=== PATIENT | male | born 1980 | race African-American/Black ===

== ENCOUNTER 2018-09-04 12:18 | Inpatient (IN) | payer BC ==
[~2018-09-04] VITALS: Ht 177.8 cm; Wt 65.2 kg
[2018-09-04 13:22] LABS: BASOPHILS # (AUTO) 0.1 X10'3 (0-0.2); BASOPHILS % (AUTO) 1.4 % (0-1); EOSINOPHILS # (AUTO) 0.1 X10'3 (0-0.9); EOSINOPHILS % (AUTO) 1.8 % (0-6); HEMATOCRIT 41.8 % (42.0-52.0); HEMOGLOBIN 13.2 g/dl (14.0-17.9); LYMPHOCYTES # (AUTO) 2.2 X10'3 (1.1-4.8); LYMPHOCYTES % (AUTO) 41.3 % (21-51); MEAN CORPUSCULAR HEMOGLOBIN 23.5 PG (27.0-31.0); MEAN CORPUSCULAR HGB CONC 31.7 g/dL (33.0-36.5); MEAN CORPUSCULAR VOLUME 74.3 FL (78-98); MEAN PLATELET VOLUME 8.6 FL (7.4-10.4); MONOCYTES # (AUTO) 0.6 X10'3 (0-0.9); MONOCYTES % (AUTO) 11.9 % (2-12); NEUTROPHILS # (AUTO) 2.4 X10'3 (1.8-7.7); NEUTROPHILS % (AUTO) 43.6 % (42-75); PLATELET COUNT 232 X10'3 (140-440); RED BLOOD COUNT 5.62 X10'6 (4.70-6.10); RED CELL DISTRIBUTION WIDTH 15.1 % (11.5-14.5); WHITE BLOOD COUNT 5.4 X10'3 (4.5-11.0)
[2018-09-04] MEDS ORDERED: NO HOME MEDS (13:22)
[2018-09-04 13:40] LABS: PARTIAL THROMBOPLASTIN TIME 35 SECONDS (22-32)
[2018-09-04] MEDS ORDERED: magnesium 4gm in 100ml NS 100 ML IV PRN (13:50)
[2018-09-04] MEDS ORDERED: HYDROcodone/acetaminophen 5mg/325mg tablet PO PRN (13:50)
[2018-09-04] MEDS ORDERED: potassium Cl 40MEQ/NS 500ml 500 ML IV PRN (13:50)
[2018-09-04] MEDS ORDERED: magnesium 2GM in 50ml NS 50 ML IV PRN (13:50)
[2018-09-04] MEDS ORDERED: mag hydrox/Alum hydrox/simeth 30ml oral suspension PO PRN (13:50)
[2018-09-04] MEDS ORDERED: potassium Cl 20 mEq SR tablet PO PRN ×2 (13:50)
[2018-09-04] MEDS ORDERED: magnesium hydroxide 30ml (MOM) UD suspension PO PRN (13:50)
[2018-09-04] MEDS ORDERED: ondansetron/PF 4mg/2ml inj IV PRN (13:50)
[2018-09-04] MEDS ORDERED: morphine 2 MG/ML inj. syringe IV PRN (13:50)
[2018-09-04] MEDS ORDERED: magnesium Cl slow-release 64mg tablet PO PRN (13:50)
[2018-09-04] MEDS ORDERED: potassium CL 10mEq/100ml bag 100 ML IV PRN (13:50)
[2018-09-04] MEDS ORDERED: acetaminophen 325mg tablet PO PRN ×2 (13:50)
[2018-09-04 13:54] LABS: ALANINE AMINOTRANSFERASE 30 U/L (12-78); ALBUMIN 3.9 G/DL (3.4-5.0); ALBUMIN/GLOBULIN RATIO 1.1 (1.1-1.5); ALKALINE PHOSPHATASE 76 IU/L (46-116); ANION GAP 5 (8-16); ASPARTATE AMINO TRANSFERASE 19 U/L (10-37); BILIRUBIN,TOTAL 0.8 MG/DL (0.1-1.0); BLOOD UREA NITROGEN 16 MG/DL (7-18); BUN/CREATININE RATIO 15.2 (5.4-32.0); CALCIUM 8.9 MG/DL (8.5-10.1); CHLORIDE 105 MMOL/L (99-107); CREATININE 1.05 MG/DL (0.60-1.10); GLUCOSE 91 MG/DL (70-104); POTASSIUM 4.4 MMOL/L (3.5-5.1); SODIUM 140 MMOL/L (135-145); TOTAL CARBON DIOXIDE 29.9 MMOL/L (24-32); TOTAL PROTEIN 7.4 G/DL (6.4-8.2); eGFR > 90 ML/MIN
[2018-09-04 14:10] VITALS: BP 108/68
--- NOTE | 2018-09-04 14:10 | NUR ---
pt arrived to floor via hospital bed with all belongings. pt transferred to bed with a steady gait; VSS. pt oriented to room and call light. 2 RN skin check was performed with Azalia PIERRE.
[2018-09-04 15:00] VITALS: BP 112/67
[2018-09-04] MEDS ORDERED: ipratropium/albuterol 3ml nebule NEB PRN (17:10)
--- NOTE | 2018-09-04 17:59 | NUR ---
Problems reprioritized. Patient report given, questions answered & plan of care reviewed with Isidra PIERRE.
[2018-09-04 18:00] VITALS: BP 100/55
--- NOTE | 2018-09-04 18:27 | NUR ---
Patient in room MED 315. I have received report from IGNACIO Cassidy and had the opportunity to ask questions and assume patient care.
[2018-09-04 22:00] VITALS: BP 104/48
[2018-09-05 00:59] LABS: BASOPHILS % (AUTO) 0.5 % (0-1); EOSINOPHILS # (AUTO) 0.1 X10'3 (0-0.9); EOSINOPHILS % (AUTO) 2.2 % (0-6); HEMATOCRIT 39.3 % (42.0-52.0); HEMOGLOBIN 12.6 g/dl (14.0-17.9); LYMPHOCYTES # (AUTO) 2.6 X10'3 (1.1-4.8); LYMPHOCYTES % (AUTO) 46.3 % (21-51); MEAN CORPUSCULAR HEMOGLOBIN 23.7 PG (27.0-31.0); MEAN PLATELET VOLUME 8.7 FL (7.4-10.4); MONOCYTES # (AUTO) 0.7 X10'3 (0-0.9); MONOCYTES % (AUTO) 11.8 % (2-12); NEUTROPHILS # (AUTO) 2.2 X10'3 (1.8-7.7); NEUTROPHILS % (AUTO) 39.2 % (42-75); PLATELET COUNT 230 X10'3 (140-440); RED BLOOD COUNT 5.31 X10'6 (4.70-6.10); RED CELL DISTRIBUTION WIDTH 15.1 % (11.5-14.5); WHITE BLOOD COUNT 5.6 X10'3 (4.5-11.0)
[2018-09-05 02:00] VITALS: BP 111/58
[2018-09-05] MEDS: HYDROcodone/acetaminophen 10/325mg tab PO PRN ×3 (03:00→22:16)
--- NOTE | 2018-09-05 04:17 | NUR ---
PAGER ID: [phone] MESSAGE: Dr. Emanuel, patient [place], . room 315 on : Bradycardia down to 41. IGNACIO Miner ACCE [phone]
[2018-09-05 04:41] LABS: ALBUMIN 3.5 G/DL (3.4-5.0); ANION GAP 8 (8-16); BLOOD UREA NITROGEN 22 MG/DL (7-18); BUN/CREATININE RATIO 20.2 (5.4-32.0); CALCIUM 9.2 MG/DL (8.5-10.1); CHLORIDE 106 MMOL/L (99-107); CREATININE 1.09 MG/DL (0.60-1.10); GLUCOSE 95 MG/DL (70-104); MAGNESIUM 2.1 MG/DL (1.5-2.4); SODIUM 141 MMOL/L (135-145); TOTAL CARBON DIOXIDE 26.7 MMOL/L (24-32); eGFR > 90 ML/MIN
[2018-09-05 06:00] VITALS: BP 95/52
--- NOTE | 2018-09-05 06:13 | NUR ---
Problems reprioritized. Patient report given, questions answered & plan of care reviewed with IGNACIO Cassidy.
[2018-09-05] MEDS: K and/or MAG REPLACEMENT MC SCH (08:00)
[2018-09-05] MEDS ORDERED: MESSAGE TO NURSING PO ONE (10:00)
[2018-09-05 10:33] LABS: HEMOGLOBIN A1C 5.6 % (4.5-6.2)
[2018-09-05] MEDS ORDERED: ringers solution, lacted 1,000 ML IV ONE (10:48)
[2018-09-05 11:00] VITALS: BP 103/67
--- NOTE | 2018-09-05 12:28 | NUR ---
PAGED RT "AB ORDERED FOR 315, GOING FOR SURGERY TOMORROW. THANK YOU, LAZARO JACK [phone]"
[2018-09-05 14:15] LABS: ABG BASE EXCESS -1.6 mmol/L (-2.0-3.0); ABG OXYGEN SATURATION 97.6 % (95-98); ABG PCO2 (T) 38.7 mmHg (35.0-48.0); ABG PH (T) 7.392 (7.350-7.450); ABG PO2 (T) 97.7 mmHg (83-108); ALLEN'S TEST Positive; FCOHb 0.6 % (0.5-1.5); FMetHb 0.3 % (0.3-1.12); FO2Hb 96.7 % (94-100); TOTAL HEMOGLOBIN 13.3 G/dl (14.0-18.0)
[2018-09-05 15:00] VITALS: BP 101/61
[2018-09-05 17:18] LABS: CLARITY,URINE CLEAR (Clear); COLOR,URINE YELLOW (Yellow); GLUCOSE, URINE NEGATIVE (Neg); KETONES,URINE NEGATIVE (Neg); LEUKOCYTE ESTERASE ,URINE NEGATIVE (Neg); NITRITES, URINE NEGATIVE (Neg); OCCULT BLOOD,URINE NEGATIVE (Neg); PROTEIN,URINE NEGATIVE (Neg); UROBILINOGEN,URINE 0.2 E.U/dL (0.2-1.0)
[2018-09-05 17:19] LABS: UA COLLECTION TYPE NON-SPECIFIED
[2018-09-05 18:00] VITALS: BP 97/58
--- NOTE | 2018-09-05 18:00 | NUR ---
Patient in room MED 315. I have received report from IGNACIO Cassidy and had the opportunity to ask questions and assume patient care.
[2018-09-05 22:00] VITALS: BP 110/62
[2018-09-06] VITALS (23 sets, daily range): BP systolic 97–192; BP diastolic 44–84
[2018-09-06] MEDS: HYDROcodone/acetaminophen 10/325mg tab PO PRN ×2 (02:38→18:38)
[2018-09-06 05:24] LABS: BASOPHILS % (AUTO) 0.7 % (0-1); EOSINOPHILS # (AUTO) 0.1 X10'3 (0-0.9); EOSINOPHILS % (AUTO) 2.3 % (0-6); HEMATOCRIT 37.3 % (42.0-52.0); HEMOGLOBIN 12.2 g/dl (14.0-17.9); LYMPHOCYTES # (AUTO) 2.4 X10'3 (1.1-4.8); LYMPHOCYTES % (AUTO) 45.3 % (21-51); MEAN CORPUSCULAR HGB CONC 32.7 g/dL (33.0-36.5); MEAN CORPUSCULAR VOLUME 73.4 FL (78-98); MEAN PLATELET VOLUME 8.6 FL (7.4-10.4); MONOCYTES # (AUTO) 0.6 X10'3 (0-0.9); MONOCYTES % (AUTO) 10.5 % (2-12); NEUTROPHILS # (AUTO) 2.2 X10'3 (1.8-7.7); NEUTROPHILS % (AUTO) 41.2 % (42-75); PLATELET COUNT 211 X10'3 (140-440); RED BLOOD COUNT 5.08 X10'6 (4.70-6.10); RED CELL DISTRIBUTION WIDTH 15.1 % (11.5-14.5); WHITE BLOOD COUNT 5.3 X10'3 (4.5-11.0)
[2018-09-06] MEDS ORDERED: gabapentin 400mg capsule PO ONE (05:30)
[2018-09-06] MEDS ORDERED: NUT.TX.IMPAIRED DIGEST FXN (Ensure Clear) 237 ML PO ONE (05:30)
[2018-09-06] MEDS ORDERED: cefazolin/dext.iso 2gm/100ml 100 ML IV ONE (05:30)
[2018-09-06] MEDS ORDERED: MESSAGE TO NURSING PO ONE ×2 (05:30)
[2018-09-06] MEDS: mupirocin 2% ointment 22GM NS SCH ×2 (05:37→21:01)
[2018-09-06 05:51] LABS: ALBUMIN 3.4 G/DL (3.4-5.0); ANION GAP 8 (8-16); BLOOD UREA NITROGEN 15 MG/DL (7-18); BUN/CREATININE RATIO 13.4 (5.4-32.0); CALCIUM 8.2 MG/DL (8.5-10.1); CHLORIDE 105 MMOL/L (99-107); CREATININE 1.12 MG/DL (0.60-1.10); GLUCOSE 103 MG/DL (70-104); MAGNESIUM 1.7 MG/DL (1.5-2.4); SODIUM 140 MMOL/L (135-145); TOTAL CARBON DIOXIDE 27.4 MMOL/L (24-32); eGFR 88 ML/MIN
[2018-09-06] MEDS ORDERED: famotidine 20mg tablet PO ONE (06:00)
--- NOTE | 2018-09-06 06:31 | NUR ---
Problems reprioritized. Patient report given, questions answered & plan of care reviewed with IGNACIO Garduno.
[2018-09-06] MEDS ORDERED: BUPIVAcaine/PF 2.5 mg/ml (0.25%) 30ml vial ONE ×2 (06:47→08:05)
[2018-09-06] MEDS ORDERED: sterile Talc 2 GM powder vial ONE ×2 (06:47→07:30)
--- NOTE | 2018-09-06 06:50 | NUR ---
Patient in room MED 315. I have received report from Isidra PIERRE and had the opportunity to ask questions and assume patient care.
--- NOTE | 2018-09-06 06:55 | NUR ---
Patient taken to OR; stable during transfer
[2018-09-06] MEDS ORDERED: fentaNYL /PF 50mcg/ml 5ml ampule ONE (07:05)
[2018-09-06] MEDS ORDERED: LIDOcaine 2% (20mg/ml) 5ml vial ONE (07:05)
[2018-09-06] MEDS ORDERED: propofol inj 20 ML IV ONE (07:05)
[2018-09-06] MEDS ORDERED: midazolam 2 mg/2 ml injection ONE ×3 (07:05→07:52)
[2018-09-06] MEDS ORDERED: dexamethasone sod phosphate 4mg/ml inj. ONE (07:06)
[2018-09-06] MEDS ORDERED: neostigmine methylsulfate 1 MG/ML 10ml vial ONE (07:06)
[2018-09-06] MEDS ORDERED: rocuronium 10mg/ml inj IV ONE ×2 (07:06→08:38)
[2018-09-06] MEDS ORDERED: glycopyrrolate 0.2mg/ml inj ONE (07:06)
[2018-09-06] MEDS ORDERED: sevoflurane 250ml liquid IH ONE (07:09)
[2018-09-06] MEDS ORDERED: ceFAZolin 1000mg inj ONE ×2 (07:45)
[2018-09-06] MEDS ORDERED: ondansetron/PF 4mg/2ml inj ONE (07:50)
[2018-09-06] MEDS: K and/or MAG REPLACEMENT MC SCH (08:00)
[2018-09-06] MEDS ORDERED: ringers solution, lacted 1,000 ML IV SCH (08:16)
[2018-09-06] MEDS ORDERED: ondansetron/PF 4mg/2ml inj IV PRN (08:20)
[2018-09-06] MEDS ORDERED: morphine 4 MG/ML inj SYRINge IV PRN ×2 (08:20)
[2018-09-06] MEDS ORDERED: hydrALAZINE 20mg/ml inj. IV PRN (08:20)
[2018-09-06] MEDS ORDERED: meperidine/PF 25mg/ml syringe IV PRN ×2 (08:20)
[2018-09-06] MEDS ORDERED: enalaprilat dihydrate 2.5mg/2ml vial IV PRN (08:20)
[2018-09-06] MEDS ORDERED: metoclopramide 5 mg/ml inj IV PRN (09:10)
[2018-09-06] MEDS ORDERED: naloxone 0.4 mg/ml inj IV PRN (09:10)
[2018-09-06] MEDS ORDERED: albuterol 2.5 MG/3 ML nebule NEB PRN (09:10)
[2018-09-06] MEDS ORDERED: labetalol 20mg/4ml (5mg/ml) syringe IV ONE (09:14)
--- NOTE | 2018-09-06 09:35 | NUR ---
Received from OR via bed, accompanied by Anesthesiologist. Report received. Initial physical assessment done and recorded. Chest tube to low suction no air leaks observed. Dr. Ledesma at bedside, PCXR done and reviewed by Dr. Ledesma. Medicated for pain by anesthesia.
--- NOTE | 2018-09-06 10:45 | NUR ---
Discharge criteria met, report to receiving floor. Transferred to room in stable condition. Arterial line dc'd prior to discharge from PACU.
--- NOTE | 2018-09-06 10:48 | NUR ---
Received report from Lakeshia PIERRE in recovery room; had opportunity to ask questions, all questions answered.
--- NOTE | 2018-09-06 10:55 | NUR ---
Patient returned from Recovery Room. Chest tube placed on left side, drained 50 cc in recovery room. Morrell catheter in place. Vital signs 132/82, HR 56, O2 98, RR 16. Dressing on chest tube site is dry and intact. Will continue to monitor closely
[2018-09-06 12:01] LABS: HEMOGLOBIN 12.3 g/dl (14.0-17.9); MONOCYTES # (AUTO) 0.2 X10'3 (0-0.9); NEUTROPHILS # (AUTO) 11.5 X10'3 (1.8-7.7)
[2018-09-06] MEDS: morphine 2 MG/ML inj. syringe IV PRN ×2 (12:05→16:17)
[2018-09-06 12:06] LABS: BASOPHILS % (AUTO) 0.3 % (0-1); EOSINOPHILS % (AUTO) 0.1 % (0-6); HEMATOCRIT 39.2 % (42.0-52.0); LYMPHOCYTES # (AUTO) 0.8 X10'3 (1.1-4.8); LYMPHOCYTES % (AUTO) 6.5 % (21-51); MEAN CORPUSCULAR HEMOGLOBIN 23.4 PG (27.0-31.0); MEAN CORPUSCULAR HGB CONC 31.3 g/dL (33.0-36.5); MEAN CORPUSCULAR VOLUME 74.7 FL (78-98); MEAN PLATELET VOLUME 8.3 FL (7.4-10.4); MONOCYTES % (AUTO) 1.9 % (2-12); NEUTROPHILS % (AUTO) 91.2 % (42-75); PLATELET COUNT 220 X10'3 (140-440); RED BLOOD COUNT 5.25 X10'6 (4.70-6.10); RED CELL DISTRIBUTION WIDTH 15.4 % (11.5-14.5); WHITE BLOOD COUNT 12.6 X10'3 (4.5-11.0)
[2018-09-06 12:10] LABS: ALBUMIN 3.3 G/DL (3.4-5.0); ANION GAP 7 (8-16); BLOOD UREA NITROGEN 13 MG/DL (7-18); CALCIUM 8.5 MG/DL (8.5-10.1); CHLORIDE 105 MMOL/L (99-107); GLUCOSE 106 MG/DL (70-104); POTASSIUM 3.9 MMOL/L (3.5-5.1); SODIUM 140 MMOL/L (135-145); TOTAL CARBON DIOXIDE 28.2 MMOL/L (24-32); eGFR > 90 ML/MIN
[2018-09-06] MEDS: ketorolac tromethamine 15mg/ml inj. IV SCH ×2 (14:38→21:00)
[2018-09-06] MEDS: albuterol 2.5 MG/3 ML nebule NEB SCH ×3 (15:01→22:56)
[2018-09-06] MEDS: ceFAZolin 1GM/D5W- ADD-VANTAGE 50 ML IV SCH (15:45)
--- NOTE | 2018-09-06 18:05 | NUR ---
Problems reprioritized. Patient report given, questions answered & plan of care reviewed with Isidra PIERRE.
--- NOTE | 2018-09-06 18:16 | NUR ---
Patient in room MED 315. I have received report from IGNACIO Garduno and had the opportunity to ask questions and assume patient care.
[2018-09-06] MEDS: docusate sod 100mg capsule PO SCH (20:58)
[2018-09-07] MEDS: ceFAZolin 1GM/D5W- ADD-VANTAGE 50 ML IV SCH (00:17)
[2018-09-07] MEDS: HYDROcodone/acetaminophen 10/325mg tab PO PRN ×4 (00:25→19:38)
[2018-09-07 02:00] VITALS: BP 107/57
[2018-09-07] MEDS: ketorolac tromethamine 15mg/ml inj. IV SCH ×2 (02:07→07:54)
[2018-09-07] MEDS: albuterol 2.5 MG/3 ML nebule NEB SCH ×6 (02:44→23:02)
[2018-09-07 06:00] VITALS: BP 111/60
--- NOTE | 2018-09-07 06:24 | NUR ---
Problems reprioritized. Patient report given, questions answered & plan of care reviewed with IGNACIO Zhong.
[2018-09-07 06:31] LABS: BASOPHILS % (AUTO) 0.2 % (0-1); EOSINOPHILS % (AUTO) 0 % (0-6); HEMATOCRIT 36.4 % (42.0-52.0); HEMOGLOBIN 11.6 g/dl (14.0-17.9); LYMPHOCYTES # (AUTO) 1.7 X10'3 (1.1-4.8); LYMPHOCYTES % (AUTO) 13.9 % (21-51); MEAN CORPUSCULAR HEMOGLOBIN 23.6 PG (27.0-31.0); MEAN CORPUSCULAR HGB CONC 31.8 g/dL (33.0-36.5); MEAN CORPUSCULAR VOLUME 74.1 FL (78-98); MEAN PLATELET VOLUME 9.3 FL (7.4-10.4); MONOCYTES # (AUTO) 1.1 X10'3 (0-0.9); MONOCYTES % (AUTO) 9.4 % (2-12); NEUTROPHILS # (AUTO) 9.2 X10'3 (1.8-7.7); NEUTROPHILS % (AUTO) 76.5 % (42-75); PLATELET COUNT 212 X10'3 (140-440); RED BLOOD COUNT 4.91 X10'6 (4.70-6.10); RED CELL DISTRIBUTION WIDTH 14.7 % (11.5-14.5)
--- NOTE | 2018-09-07 06:32 | NUR ---
Patient in room MED 315. I have received report from Isidra PIERRE and had the opportunity to ask questions and assume patient care.
--- NOTE | 2018-09-07 06:34 | NUR ---
Patient in room MED 315. I have received report from Isidra and had the opportunity to ask questions and assume patient care.
[2018-09-07 06:39] LABS: ALBUMIN 3.2 G/DL (3.4-5.0); ANION GAP 7 (8-16); BLOOD UREA NITROGEN 12 MG/DL (7-18); BUN/CREATININE RATIO 11.7 (5.4-32.0); CALCIUM 8.8 MG/DL (8.5-10.1); CHLORIDE 106 MMOL/L (99-107); CREATININE 1.03 MG/DL (0.60-1.10); GLUCOSE 108 MG/DL (70-104); MAGNESIUM 1.6 MG/DL (1.5-2.4); POTASSIUM 3.7 MMOL/L (3.5-5.1); SODIUM 140 MMOL/L (135-145); TOTAL CARBON DIOXIDE 27.1 MMOL/L (24-32); eGFR > 90 ML/MIN
[2018-09-07] MEDS: docusate sod 100mg capsule PO SCH ×2 (07:54→19:38)
[2018-09-07] MEDS: K and/or MAG REPLACEMENT MC SCH (08:00)
[2018-09-07] MEDS: gabapentin 300mg capsule PO SCH ×3 (08:40→21:05)
--- NOTE | 2018-09-07 08:50 | NUR ---
Called chest xray results to Dr Ledesma and reported Dr Randall's (radiologist) concerns that chest tube may not be working adequatlely. Dr Ledesma stated that he reviewed the chest xray image himself and that all looks well. He is not concerned.
--- NOTE | 2018-09-07 09:00 | NUR ---
RN informed patient that she was going to remove jha catheter. Patient stated that he would rather have his do it (she is an RN). Jha catheter removed by patient's (RN) without complications.
--- NOTE | 2018-09-07 09:09 | NUR ---
I have reviewed and agree with all medications administered and interventions performed by [facility] Student Adrian Benedict Addendum: 09/07/18 at 0909 by Kathleen Melissa RT Amended: Links added.
[2018-09-07 11:00] VITALS: BP 110/63
--- NOTE | 2018-09-07 14:47 | NUR ---
Chest tube atrium had appeared to have been knocked over at some point, as there was sanguinous fluid in multiple chambers (cumulative amount unchanged). Swapped out atrium for a new one to get a fresh start with output measurements.
[2018-09-07 17:29] VITALS: BP 115/59
[2018-09-07 18:00] VITALS: BP 92/54
--- NOTE | 2018-09-07 18:30 | NUR ---
Patient in room MED 315. I have received report from IGNACIO Sánchez (orientee) and IGNACIO Zhong and had the opportunity to ask questions and assume patient care.
--- NOTE | 2018-09-07 18:30 | NUR ---
Problems reprioritized. Patient report given, questions answered & plan of care reviewed with Isidra PIERRE.
[2018-09-07 22:00] VITALS: BP 104/62
[2018-09-08 02:00] VITALS: BP 112/69
[2018-09-08] MEDS: HYDROcodone/acetaminophen 10/325mg tab PO PRN ×4 (02:12→19:41)
[2018-09-08] MEDS: albuterol 2.5 MG/3 ML nebule NEB SCH ×6 (03:26→23:15)
[2018-09-08 05:53] LABS: BASOPHILS # (AUTO) 0.1 X10'3 (0-0.2); BASOPHILS % (AUTO) 0.8 % (0-1); EOSINOPHILS # (AUTO) 0.1 X10'3 (0-0.9); HEMATOCRIT 33.8 % (42.0-52.0); LYMPHOCYTES # (AUTO) 2.4 X10'3 (1.1-4.8); LYMPHOCYTES % (AUTO) 27.5 % (21-51); MEAN CORPUSCULAR HEMOGLOBIN 23.8 PG (27.0-31.0); MEAN CORPUSCULAR HGB CONC 32.5 g/dL (33.0-36.5); MEAN CORPUSCULAR VOLUME 73.3 FL (78-98); MEAN PLATELET VOLUME 8.6 FL (7.4-10.4); MONOCYTES # (AUTO) 1.1 X10'3 (0-0.9); MONOCYTES % (AUTO) 12.2 % (2-12); NEUTROPHILS # (AUTO) 5.1 X10'3 (1.8-7.7); NEUTROPHILS % (AUTO) 58.5 % (42-75); PLATELET COUNT 204 X10'3 (140-440); RED BLOOD COUNT 4.61 X10'6 (4.70-6.10); RED CELL DISTRIBUTION WIDTH 14.6 % (11.5-14.5); WHITE BLOOD COUNT 8.8 X10'3 (4.5-11.0)
[2018-09-08 06:00] VITALS: BP 108/62
[2018-09-08 06:16] LABS: ALBUMIN 3.1 G/DL (3.4-5.0); ANION GAP 8 (8-16); BLOOD UREA NITROGEN 9 MG/DL (7-18); BUN/CREATININE RATIO 9.5 (5.4-32.0); CALCIUM 10.3 MG/DL (8.5-10.1); CHLORIDE 106 MMOL/L (99-107); CREATININE 0.95 MG/DL (0.60-1.10); GLUCOSE 97 MG/DL (70-104); MAGNESIUM 1.7 MG/DL (1.5-2.4); POTASSIUM 3.7 MMOL/L (3.5-5.1); SODIUM 143 MMOL/L (135-145); TOTAL CARBON DIOXIDE 28.7 MMOL/L (24-32); eGFR > 90 ML/MIN
--- NOTE | 2018-09-08 06:35 | NUR ---
Problems reprioritized. Patient report given, questions answered & plan of care reviewed with IGNACIO Sullivan and IGNACIO Morrisseyee.
[2018-09-08] MEDS: K and/or MAG REPLACEMENT MC SCH (08:00)
[2018-09-08] MEDS: docusate sod 100mg capsule PO SCH ×2 (08:38→19:42)
[2018-09-08] MEDS: gabapentin 300mg capsule PO SCH ×3 (08:38→21:22)
[2018-09-08 15:00] VITALS: BP 108/67
[2018-09-08 18:00] VITALS: BP 128/77
--- NOTE | 2018-09-08 18:30 | NUR ---
Patient in room MED 315. I have received report from Yuni PIERRE and had the opportunity to ask questions and assume patient care.
[2018-09-08 22:00] VITALS: BP 128/77
[2018-09-09 02:00] VITALS: BP 108/64
[2018-09-09] MEDS: albuterol 2.5 MG/3 ML nebule NEB SCH ×2 (03:26→07:59)
[2018-09-09 06:00] VITALS: BP 111/63
--- NOTE | 2018-09-09 06:12 | NUR ---
Problems reprioritized. Patient report given, questions answered & plan of care reviewed with Ben RN's. Addendum: 09/09/18 at 0615 by Dimple Amado RN stef giles
--- NOTE | 2018-09-09 06:15 | NUR ---
Problems reprioritized. Patient report given, questions answered & plan of care reviewed with Art RN.
[2018-09-09 06:17] LABS: ALBUMIN 3.2 G/DL (3.4-5.0); ANION GAP 9 (8-16); BLOOD UREA NITROGEN 7 MG/DL (7-18); BUN/CREATININE RATIO 8.1 (5.4-32.0); CALCIUM 9.1 MG/DL (8.5-10.1); CHLORIDE 104 MMOL/L (99-107); CREATININE 0.86 MG/DL (0.60-1.10); GLUCOSE 94 MG/DL (70-104); MAGNESIUM 1.8 MG/DL (1.5-2.4); POTASSIUM 4.1 MMOL/L (3.5-5.1); SODIUM 139 MMOL/L (135-145); TOTAL CARBON DIOXIDE 26.1 MMOL/L (24-32); eGFR > 90 ML/MIN
[2018-09-09 07:02] LABS: BASOPHILS # (AUTO) 0.1 X10'3 (0-0.2); BASOPHILS % (AUTO) 0.7 % (0-1); EOSINOPHILS # (AUTO) 0.2 X10'3 (0-0.9); EOSINOPHILS % (AUTO) 2.3 % (0-6); HEMOGLOBIN 12.4 g/dl (14.0-17.9); LYMPHOCYTES # (AUTO) 1.7 X10'3 (1.1-4.8); LYMPHOCYTES % (AUTO) 20.6 % (21-51); MEAN CORPUSCULAR HEMOGLOBIN 23.8 PG (27.0-31.0); MEAN CORPUSCULAR HGB CONC 32.5 g/dL (33.0-36.5); MEAN CORPUSCULAR VOLUME 73.3 FL (78-98); MEAN PLATELET VOLUME 8.7 FL (7.4-10.4); MONOCYTES # (AUTO) 1.1 X10'3 (0-0.9); MONOCYTES % (AUTO) 13.2 % (2-12); NEUTROPHILS # (AUTO) 5.4 X10'3 (1.8-7.7); NEUTROPHILS % (AUTO) 63.2 % (42-75); PLATELET COUNT 228 X10'3 (140-440); RED BLOOD COUNT 5.19 X10'6 (4.70-6.10); RED CELL DISTRIBUTION WIDTH 15.3 % (11.5-14.5); WHITE BLOOD COUNT 8.5 X10'3 (4.5-11.0)
[2018-09-09] MEDS: docusate sod 100mg capsule PO SCH (07:36)
[2018-09-09] MEDS: gabapentin 300mg capsule PO SCH (07:36)
[2018-09-09] MEDS: HYDROcodone/acetaminophen 10/325mg tab PO PRN (07:38)
[2018-09-09] MEDS: K and/or MAG REPLACEMENT MC SCH (07:39)
--- NOTE | 2018-09-09 07:39 | NUR ---
No computer available to scan meds. Pt was experiencing chest discomfort and needed pain medication. Pt medications were given without scan. Charge nurse Azalia aware of malfunctioning equipment and approved of med administration.
[2018-09-09] MEDS ORDERED: HYDR-3972 PO (07:49)
[2018-09-09] MEDS ORDERED: COL100C PO (07:49)
--- NOTE | 2018-09-09 09:43 | NUR ---
DISCHARGE INSTRUCTIONS GIVEN TO PATIENT. ALL QUESTIONS AND CONCERNS ADDRESSED AT THIS TIME. PATIENT TO FOLLOW-UP W/ DR. TYLER OFFICE FOR "WORK OFF REQUEST FORM". AWAITING FOR [facility]ED[facility] RX DELIVERY. ALL PIVS REMOVED TIP INTACT.
== END 2018-09-09 10:15 | disposition home or self-care (01) | DRG 164 ==
LOC: ER 12:21 → MED 3N 13:54 → CMPBEDREQ 09-06 19:47
PROVIDERS: ADMIT Hospitalist; ATTEND Thoracic Surgery (Cardiothoracic Vascular Surgery)
PROC: 0BBP4ZZ Excision of Left Pleura, Percutaneous Endoscopic Approach (ICD-10-PCS; 2018-09-06)
PROC: 0BJ08ZZ Inspection of Tracheobronchial Tree, Via Natural or Artificial Opening Endoscopic (ICD-10-PCS; 2018-09-06)
PROC: 0BQG4ZZ Repair Left Upper Lung Lobe, Percutaneous Endoscopic Approach (ICD-10-PCS; principal; 2018-09-06 07:09)
DX: J43.0 Unilateral pulmonary emphysema [MacLeod's syndrome] (principal); J93.83 Other pneumothorax; J60 Coalworker's pneumoconiosis; M54.9 Dorsalgia, unspecified; Z87.891 Personal history of nicotine dependence
CPT/HCPCS: 99285; Z7506; Z7508; 36415; 36600; 71045; 71250; 80048; 80053; 81003; 82803; 82948; 83036; 83735; 84484; 85018; 85025; 85610; 85730; 86885; 86900; 86901; 87081; 93005; 94010; 94640; 94668; 94760; 97110; 97116; 97161; 97164; 97530; A6255; A6257; A6449; A7000; A7048; C1758; G0378; J0360; J0690; J1100; J1885; J2001; J2175; J2250; J2270; J2405; J2704; J2710; J3010; J3490; J7060; J7120

== ENCOUNTER 2018-09-17 13:08 | Outpatient (CLI) | payer BC, OTHER ==
[~2018-09-17 13:08] MED LIST: COL100C PO; HYDR-3972 PO; NO HOME MEDS
== END 2018-09-17 23:59 | disposition home or self-care (01) ==
LOC: RAD 13:08
PROVIDERS: ATTEND Thoracic Surgery (Cardiothoracic Vascular Surgery)
DX: J93.12 Secondary spontaneous pneumothorax (principal); Z87.891 Personal history of nicotine dependence
CPT/HCPCS: 71046

== ENCOUNTER 2019-05-18 05:42 | Observation (INO) | payer BC ==
[2019-05-05 12:16] LABS: BASOPHILS % (AUTO) 0.6 % (0-1); EOSINOPHILS # (AUTO) 0.1 X10'3 (0-0.9); EOSINOPHILS % (AUTO) 1.6 % (0-6); LYMPHOCYTES # (AUTO) 2.5 X10'3 (1.1-4.8); LYMPHOCYTES % (AUTO) 43.1 % (21-51); MEAN CORPUSCULAR HEMOGLOBIN 23.6 PG (27.0-31.0); MEAN CORPUSCULAR HGB CONC 31.9 g/dL (33.0-36.5); MEAN CORPUSCULAR VOLUME 74.1 FL (78-98); MEAN PLATELET VOLUME 8.8 FL (7.4-10.4); MONOCYTES # (AUTO) 0.5 X10'3 (0-0.9); MONOCYTES % (AUTO) 8.2 % (2-12); NEUTROPHILS # (AUTO) 2.6 X10'3 (1.8-7.7); NEUTROPHILS % (AUTO) 46.5 % (42-75); PRE OP HEMATOCRIT 43.7 % (42.0-52.0); PRE OP HEMOGLOBIN 13.9 g/dL (14.0-17.9); PRE OP PLATELET COUNT 259 X10'3 (140-440); RED CELL DISTRIBUTION WIDTH 16.1 % (11.5-14.5)
[2019-05-05 12:28] LABS: PRE OP INR 1.1 INR; PRE OP PROTIME 10.9 SECONDS (9.0-12.0)
[2019-05-05 12:35] LABS: ALBUMIN 4.1 G/DL (3.4-5.0); ALBUMIN/GLOBULIN RATIO 1.1 (1.1-1.5); ALKALINE PHOSPHATASE 81 IU/L (46-116); BLOOD UREA NITROGEN 7 MG/DL (7-18); BUN/CREATININE RATIO 7.1 (5.4-32.0); CALCIUM 9.3 MG/DL (8.5-10.1); CHLORIDE 106 MMOL/L (99-107); CREATININE 0.99 MG/DL (0.60-1.10); PRE OP ALT 17 U/L (30-65); PRE OP ANION GAP 3 (8-16); PRE OP AST 17 U/L (10-37); PRE OP BILIRUB, TOTAL 0.6 MG/DL (0.0-1.0); PRE OP GLUCOSE 82 MG/DL (70-104); PRE OP POTASSIUM 4.3 MMOL/L (3.4-5.1); PRE OP SODIUM 141 MMOL/L (135-145); TOTAL CARBON DIOXIDE 31.6 MMOL/L (24-32); TOTAL PROTEIN 7.7 G/DL (6.4-8.2); eGFR > 90 ML/MIN
[2019-05-18] VITALS (16 sets, daily range): BP systolic 88–120; BP diastolic 46–85
[~2019-05-18] VITALS: Ht 180.3 cm; Wt 65.0 kg
[~2019-05-18 05:42] MED LIST changes: -COL100C PO; -HYDR-3972 PO; +VANCOMYCIN INJ 1000 MG in NORMAL SALINE 250ml IV.SOLN IV ONE; +cefazolin/dext.iso 2gm/100ml 100 ML IV ONE; +famotidine 20mg tablet PO ONE; +ringers solution, lacted 1,000 ML IV SCH; +tranexamic acid inj. 1,000 MG in normal saline 100 ML IV ONE
[2019-05-18] MEDS ORDERED: LIDOcaine 1% (10mg/ml) 2ml vial ONE (05:59)
[2019-05-18] MEDS ORDERED: mupirocin 2% nasal ointment 1gm UD NS ONE (06:20)
[2019-05-18] MEDS ORDERED: ceFAZolin 1000mg inj ONE (06:45)
[2019-05-18] MEDS ORDERED: vancomycin 1,000mg inj ONE (06:45)
--- NOTE | 2019-05-18 06:45 | NUR ---
pt states did not pickup driver mupricion ointment pre op.
--- NOTE | 2019-05-18 06:50 | NUR ---
INCENTIVE SPIROMETER TEACHING DONE.
[2019-05-18] MEDS ORDERED: morphine /PF 1mg/ml 10ml inj. ONE (07:24)
[2019-05-18] MEDS ORDERED: MIDAZolam 1mg/ml 10ml vial ONE (07:24)
[2019-05-18] MEDS ORDERED: fentaNYL/PF 50MCG/1 ML 2ML syringe ONE (07:24)
[2019-05-18] MEDS ORDERED: diphenhydrAMINE 50 mg/ml inj ONE (07:32)
[2019-05-18] MEDS ORDERED: propofol inj 20 ML IV ONE (07:55)
[2019-05-18] MEDS ORDERED: ringers solution, lacted 1,000 ML IV SCH (09:19)
[2019-05-18] MEDS ORDERED: NORMAL SALINE IV PRN (09:19)
[2019-05-18] MEDS ORDERED: NALOXONE IV PRN (09:19)
[2019-05-18] MEDS ORDERED: meperidine/PF 25mg/ml syringe IV PRN ×3 (09:20)
[2019-05-18] MEDS ORDERED: proCHLORperazine 10 MG/2 ml inj IV PRN (09:20)
[2019-05-18] MEDS ORDERED: ondansetron/PF 4mg/2ml inj IV PRN ×3 (09:20→10:20)
[2019-05-18] MEDS ORDERED: morphine 2 MG/ML inj. syringe IV PRN (09:20)
[2019-05-18] MEDS ORDERED: diphenhydrAMINE 50 mg/ml inj IV PRN (09:20)
[2019-05-18] MEDS ORDERED: morphine 4 MG/ML inj SYRINge IV PRN (09:20)
[2019-05-18] MEDS ORDERED: cloNIDine hcl/PF 100mcg/ml inj ONE (09:50)
[2019-05-18] MEDS ORDERED: ROPIVAcaine 0.5% (5mg/ml) 30ml vial ONE (10:02)
[2019-05-18] MEDS ORDERED: BUPIVAcaine/PF 7.5mg/ml (0.75%) 10ml vial ONE (10:11)
[2019-05-18] MEDS ORDERED: HYDROmorphone inj. 0.5 MG/0.5 ML DISP.SYRIN IV PRN (10:20)
[2019-05-18] MEDS ORDERED: diphenhydrAMINE 25mg capsule PO PRN ×2 (10:20)
[2019-05-18] MEDS ORDERED: magnesium hydroxide 30ml (MOM) UD suspension PO PRN (10:20)
[2019-05-18] MEDS ORDERED: acetaminophen 325mg tablet PO PRN (10:20)
[2019-05-18] MEDS ORDERED: HYDROmorphone 1 mg/ml syringe IV PRN (10:20)
[2019-05-18] MEDS ORDERED: bisacodyl 10mg suppository rectal RC PRN (10:20)
--- NOTE | 2019-05-18 10:41 | NUR ---
Received from OR via ORTHO BED WITH [facility] , accompanied by Anesthesiologist HAI and report given by Anesthesiolgist. PATIENT WITH 18G PIV IN RIGHT UE RUNNING LR AT 1OOL, DENIES PAIN 2' SPINAL ANESTHESIA. L2 SENSATION TO RIGHT SIDE. LEFT WITH FULL SENSATION. JOSEPH CATHETER IN PLACE. RIGHT HIP WRAP WITH POWDER PACK IN PLACE. PATIENT VSS. SCDS DONNED. ABDUCTION WEDGE IN PLACE WELL. + CAP REFILL AND PWD TO RIGHT FOOT. KENDALL DRAIN PRESENT WELL. Addendum: 05/18/19 at 1100 by Bairon Dang RN, RN Amended: Links added.
--- NOTE | 2019-05-18 11:26 | NUR ---
Patient in room PAS IN 900. I have received report from Bairon and had the opportunity to ask questions and assume patient care.
--- NOTE | 2019-05-18 11:28 | NUR ---
Pt arrived on the floor, tucked in, provided comfort measures
--- NOTE | 2019-05-18 11:31 | NUR ---
ALL CRITERIA FOR TRANSFER TO THE FLOOR HAS BEEN ACHIEVED. VSS. BED LOW, CALL LIGHT AND VS. SET IN PLACE. RN PRESENT TO ACCEPT CARE. PATIENT RESTING COMFORTABLY IN BED. BELONGINGS SENT WITH PATIENT. DRESSINGS CDI. IGNACIO WYATT PRESENT TO ACCEPT CARE OF PATIENT. Addendum: 05/18/19 at 1202 by Bairon Abreu - IGNACIO PIERRE Amended: Links added.
[2019-05-18] MEDS: gabapentin 300mg capsule PO SCH ×2 (13:26→20:03)
[2019-05-18] MEDS ORDERED: tranexamic acid inj. 650 MG in normal saline 100ml IV soln 100 ML IV ONE (14:00)
[2019-05-18] MEDS: acetaminophen 325mg tablet PO SCH ×2 (14:30→20:03)
[2019-05-18] MEDS: potassium cl 20mEq in 1/2 NS 1,000 ML IV SCH ×2 (15:25→18:18)
[2019-05-18] MEDS ORDERED: ceFAZolin 1GM/D5W- ADD-VANTAGE 50 ML IV SCH (16:00)
[2019-05-18] MEDS: ceFAZolin/D5W- 1GM premix 50 ML IV SCH (16:56)
--- NOTE | 2019-05-18 18:12 | NUR ---
Problems reprioritized. Patient report given, questions answered & plan of care reviewed with
--- NOTE | 2019-05-18 18:24 | NUR ---
Patient in room ORTHO 4006. I have received report from IGNACIO WYATT and had the opportunity to ask questions and assume patient care.
[2019-05-18] MEDS ORDERED: vancomycin/NS 1 GM ADD-VANTAGE 250 ML IV SCH (20:00)
[2019-05-18] MEDS: sennosides 8.6mg tablet PO SCH (20:04)
[2019-05-19] VITALS (7 sets, daily range): BP systolic 92–124; BP diastolic 39–66
[2019-05-19] MEDS: oxyCODONE IR 5mg (immed. release) tablet PO PRN ×7 (01:11→21:24)
[2019-05-19] MEDS: acetaminophen 325mg tablet PO SCH ×4 (01:15→21:24)
[2019-05-19] MEDS: potassium cl 20mEq in 1/2 NS 1,000 ML IV SCH ×3 (01:23→18:18)
[2019-05-19] MEDS: ceFAZolin/D5W- 1GM premix 50 ML IV SCH (01:23)
[2019-05-19 05:19] LABS: BASOPHILS % (AUTO) 0.3 % (0-1); EOSINOPHILS % (AUTO) 0.1 % (0-6); HEMATOCRIT 30.9 % (42.0-52.0); HEMOGLOBIN 10.3 g/dl (14.0-17.9); LYMPHOCYTES # (AUTO) 1.9 X10'3 (1.1-4.8); LYMPHOCYTES % (AUTO) 19.3 % (21-51); MEAN CORPUSCULAR HEMOGLOBIN 24.5 PG (27.0-31.0); MEAN CORPUSCULAR HGB CONC 33.3 g/dL (33.0-36.5); MEAN CORPUSCULAR VOLUME 73.8 FL (78-98); MEAN PLATELET VOLUME 9.5 FL (7.4-10.4); MONOCYTES # (AUTO) 1.1 X10'3 (0-0.9); MONOCYTES % (AUTO) 11.4 % (2-12); NEUTROPHILS # (AUTO) 6.9 X10'3 (1.8-7.7); NEUTROPHILS % (AUTO) 68.9 % (42-75); PLATELET COUNT 171 X10'3 (140-440); RED BLOOD COUNT 4.19 X10'6 (4.70-6.10); RED CELL DISTRIBUTION WIDTH 14.9 % (11.5-14.5)
[2019-05-19 05:34] LABS: ANION GAP 8 (8-16); CHLORIDE 107 MMOL/L (99-107); POTASSIUM 4.2 MMOL/L (3.5-5.1); SODIUM 140 MMOL/L (135-145); TOTAL CARBON DIOXIDE 25.4 MMOL/L (24-32)
--- NOTE | 2019-05-19 06:05 | NUR ---
Rcvd report from Lena PIERRE
--- NOTE | 2019-05-19 06:23 | NUR ---
Problems reprioritized. Patient report given, questions answered & plan of care reviewed with IGNACIO REIS AND IGNACIO COHN.
[2019-05-19] MEDS: gabapentin 300mg capsule PO SCH ×3 (07:44→21:24)
[2019-05-19] MEDS: enoxaparin 40mg/0.4ml syringe SQ SCH (07:48)
--- NOTE | 2019-05-19 09:00 | NUR ---
NURSING STAFF HAS EDUCATED PT ABOUT UTILIZING HIS INCENTIVE SPIROMETER, CONTINUE TO EDUCATE AND MONITOR
--- NOTE | 2019-05-19 12:30 | NUR ---
NURSING STAFF IS CONTINUING TO ENCOURAGE PT TO UTILIZE HIS INCENTIVE SPIROMETER, CONTINUE TO EDUCATE AND MONITOR PT
--- NOTE | 2019-05-19 15:08 | NUR ---
Temporal box in I/O's @ 15:04 does not apply to patient
--- NOTE | 2019-05-19 18:35 | NUR ---
Gave report to Zahra PIERRE
[2019-05-19] MEDS: sennosides 8.6mg tablet PO SCH (21:23)
[2019-05-19] MEDS: celeCOXIB 100mg capsule PO SCH (21:24)
--- NOTE | 2019-05-19 21:38 | NUR ---
pt refused to use IS. educated on CDB to help with breathing. educated on turning to prevent sores. pt compliant with turning onto left side. pillow behind back. unable to visualize skin as pt didn't clod puller that far ,but on side at this time. will continue to encourage turning. pt states pain from top of knee to top of leg. sharp pain. noted pt sleeping b/w doses of pain medication. will continue to monitor.
[2019-05-20] MEDS: potassium cl 20mEq in 1/2 NS 1,000 ML IV SCH (02:18)
[2019-05-20] MEDS: acetaminophen 325mg tablet PO SCH ×2 (02:22→07:49)
[2019-05-20] MEDS: oxyCODONE IR 5mg (immed. release) tablet PO PRN (05:14)
[2019-05-20 05:18] LABS: BASOPHILS % (AUTO) 0.3 % (0-1); EOSINOPHILS % (AUTO) 0.2 % (0-6); HEMATOCRIT 32.4 % (42.0-52.0); HEMOGLOBIN 10.6 g/dl (14.0-17.9); LYMPHOCYTES # (AUTO) 2.3 X10'3 (1.1-4.8); LYMPHOCYTES % (AUTO) 15.4 % (21-51); MEAN CORPUSCULAR HEMOGLOBIN 24.2 PG (27.0-31.0); MEAN CORPUSCULAR HGB CONC 32.8 g/dL (33.0-36.5); MEAN CORPUSCULAR VOLUME 73.6 FL (78-98); MONOCYTES # (AUTO) 2.1 X10'3 (0-0.9); MONOCYTES % (AUTO) 14.1 % (2-12); NEUTROPHILS # (AUTO) 10.2 X10'3 (1.8-7.7); PLATELET COUNT 180 X10'3 (140-440); RED CELL DISTRIBUTION WIDTH 14.9 % (11.5-14.5); WHITE BLOOD COUNT 14.6 X10'3 (4.5-11.0)
[2019-05-20 06:00] VITALS: BP 92/45
--- NOTE | 2019-05-20 06:19 | NUR ---
Problems reprioritized. Patient report given, questions answered & plan of care reviewed with Nenita PIERRE.
--- NOTE | 2019-05-20 06:35 | NUR ---
Patient in room ORTHO 4006. I have received report from Zahra PIERRE and had the opportunity to ask questions and assume patient care.
[2019-05-20 07:16] LABS: ANISOCYTOSIS 1+; HYPOCHROMASIA 1+; MICROCYTOSIS 1+; PLATELET ESTIMATE NORMAL; TOTAL CELLS COUNTED 100
[2019-05-20 07:17] LABS: TARGET CELLS FEW
[2019-05-20] MEDS: celeCOXIB 100mg capsule PO SCH (07:49)
[2019-05-20] MEDS: gabapentin 300mg capsule PO SCH (07:49)
[2019-05-20] MEDS: enoxaparin 40mg/0.4ml syringe SQ SCH (07:49)
[2019-05-20 09:27] VITALS: BP 105/51
[2019-05-20] MEDS ORDERED: acetaminophen 325mg tablet PO PRN (10:20)
[2019-05-20] MEDS ORDERED: ENOX40SY7 SUBCUT (10:53)
--- NOTE | 2019-05-20 12:25 | NUR ---
Patient stable for discharge home with today. All discharge instructions given to patient and questions answered. IV taken out and cannula intact. All belongings sent home with patient.
== END 2019-05-20 12:25 | disposition home or self-care (01) ==
LOC: UNDOADMIN 05:42 → PAS IN 05:42 → EDSTATUS 09:45 → PAS IN 10:18 → INTOOBSV 10:18 → PAS IN 11:31 → ORTHO 4S 11:31
PROVIDERS: ADMIT Orthopaedic Surgery; ATTEND Orthopaedic Surgery
DX: M16.11 Unilateral primary osteoarthritis, right hip (principal); D62 Acute posthemorrhagic anemia; F41.9 Anxiety disorder, unspecified; Z87.891 Personal history of nicotine dependence
CPT/HCPCS: 27130; 36415; 71046; 72170; 73502; 80051; 80053; 82948; 85025; 85610; 85730; 86885; 86900; 86901; 87081; 93005; 96365; 96366; 96367; 96372; 96375; 97110; 97116; 97161; 97530; C1758; C1776; C9250; G0378; J0690; J0735; J1200; J2001; J2250; J2270; J2405; J2704; J3010; J3370; J3490; J7120; Q0163; A4215; A4618; A7000; J1650; J2795; J3480

== ENCOUNTER 2020-05-11 08:57 | Outpatient (CLI) | payer BC ==
[~2020-05-11 08:57] MED LIST changes: +ENOX40SY7 SUBCUT; -VANCOMYCIN INJ 1000 MG in NORMAL SALINE 250ml IV.SOLN IV ONE; -cefazolin/dext.iso 2gm/100ml 100 ML IV ONE; -famotidine 20mg tablet PO ONE; -ringers solution, lacted 1,000 ML IV SCH; -tranexamic acid inj. 1,000 MG in normal saline 100 ML IV ONE
[2020-05-11 09:37] LABS: BASOPHILS # (AUTO) 0.1 X10'3 (0-0.2); BASOPHILS % (AUTO) 0.9 % (0-1); EOSINOPHILS # (AUTO) 0.1 X10'3 (0-0.9); EOSINOPHILS % (AUTO) 1.6 % (0-6); HEMATOCRIT 43.1 % (42.0-52.0); HEMOGLOBIN 13.9 g/dl (14.0-17.9); LYMPHOCYTES # (AUTO) 2.4 X10'3 (1.1-4.8); LYMPHOCYTES % (AUTO) 37.6 % (21-51); MEAN CORPUSCULAR HEMOGLOBIN 23.9 PG (27.0-31.0); MEAN CORPUSCULAR HGB CONC 32.3 g/dL (33.0-36.5); MEAN CORPUSCULAR VOLUME 74.1 FL (78-98); MEAN PLATELET VOLUME 8.5 FL (7.4-10.4); MONOCYTES # (AUTO) 0.7 X10'3 (0-0.9); MONOCYTES % (AUTO) 11.5 % (2-12); NEUTROPHILS # (AUTO) 3.1 X10'3 (1.8-7.7); NEUTROPHILS % (AUTO) 48.4 % (42-75); PLATELET COUNT 246 X10'3 (140-440); RED BLOOD COUNT 5.82 X10'6 (4.70-6.10); WHITE BLOOD COUNT 6.3 X10'3 (4.5-11.0)
[2020-05-11 09:38] LABS: CLARITY,URINE CLEAR (Clear); COLOR,URINE YELLOW (Yellow); GLUCOSE, URINE NEGATIVE (Neg); KETONES,URINE NEGATIVE (Neg); LEUKOCYTE ESTERASE ,URINE NEGATIVE (Neg); NITRITES, URINE NEGATIVE (Neg); OCCULT BLOOD,URINE NEGATIVE (Neg); PROTEIN,URINE NEGATIVE (Neg); UA COLLECTION TYPE CLN CATCH MIDSTREAM
[2020-05-11 10:11] LABS: ALANINE AMINOTRANSFERASE 23 U/L (12-78); ALBUMIN/GLOBULIN RATIO 1.1 (1.1-1.5); ALKALINE PHOSPHATASE 84 IU/L (46-116); ANION GAP 6 (8-16); ASPARTATE AMINO TRANSFERASE 22 U/L (10-37); BILIRUBIN,TOTAL 0.7 MG/DL (0.1-1.0); BLOOD UREA NITROGEN 12 MG/DL (7-18); BUN/CREATININE RATIO 11.5 (5.4-32.0); CALCIUM 9.5 MG/DL (8.5-10.1); CHLORIDE 106 MMOL/L (99-107); CHOL/HDL RATIO 2.5 (0.00-4.99); CHOLESTEROL 140 MG/DL (0-200); CREATININE 1.04 MG/DL (0.60-1.10); GLUCOSE 91 MG/DL (70-104); HDL CHOLESTEROL 55 MG/DL (35-60); LDL CHOLESTEROL 76 MG/DL (50-100); POTASSIUM 4.6 MMOL/L (3.5-5.1); SODIUM 142 MMOL/L (135-145); TOTAL PROTEIN 7.6 G/DL (6.4-8.2); TRIGLYCERIDES 42 MG/DL (20-135); eGFR > 90 ML/MIN
== END 2020-05-11 23:59 | disposition home or self-care (01) ==
LOC: LAB 08:57
PROVIDERS: ATTEND Family Medicine
DX: D64.9 Anemia, unspecified (principal); R53.83 Other fatigue; E78.5 Hyperlipidemia, unspecified; E07.9 Disorder of thyroid, unspecified; N30.90 Cystitis, unspecified without hematuria
CPT/HCPCS: 36415; 80053; 80061; 81003; 84439; 84443; 85025

== ENCOUNTER → 2020-07-13 | Outpatient (CLI) | payer BC | END | disposition home or self-care (01) | LOC: VAS 11:02 | PROVIDERS: ATTEND Orthopaedic Surgery | DX: I82.401 Acute embolism and thrombosis of unspecified deep veins of right lower extremity (principal) | CPT/HCPCS: 93971 ==

== ENCOUNTER 2020-08-01 11:16 | Outpatient (CLI) | payer BC | END 2020-08-01 23:59 | disposition home or self-care (01) | LOC: LAB 11:16 | PROVIDERS: ATTEND Specialist | DX: J44.9 Chronic obstructive pulmonary disease, unspecified (principal) | CPT/HCPCS: 36415 ==

== ENCOUNTER 2024-04-17 17:57 | Emergency (ER) | payer BC ==
[~2024-04-17] VITALS: Ht 180.3 cm; Wt 66.0 kg
[2024-04-17 17:58] VITALS: BP 131/79; PULSE 86; TEMP 98.9; O2SAT 99
[2024-04-17 19:34] VITALS: RESP 16
[2024-04-17] MEDS: ketorolac trometh 30MG/ML vial 30 MG/ML VIAL IM STA (19:34)
[2024-04-17] MEDS ORDERED: MELO-102 PO (19:35)
== END 2024-04-17 19:46 | disposition home or self-care (01) ==
LOC: ER 17:58
DX: M54.50 Low back pain, unspecified (principal); Z91.030 Bee allergy status; Z79.899 Other long term (current) drug therapy
CPT/HCPCS: 72100; 96372; 99283; J1885